=== PATIENT | male | born 1970 | race Caucasian/White ===

== ENCOUNTER 2024-03-19 01:33 | Emergency (ER) | payer MEDICAID, SELFPAY ==
--- NOTE | 2024-03-19 01:42 | PC.NURSE ---
RECEIVED REPORT FROM [facility] BUT PATIENT STATES HE DOES NOT WANT TO BE SEEN AND PICK HIM UP. PATIENT EXITED ED AT THIS TIME, PRIOR TO TRIAGE.
== END 2024-03-19 01:43 | disposition left against medical advice (07) ==
LOC: SERX 01:54
PROVIDERS: Emergency Provider Emergency Medicine
DX: Z53.21 Procedure and treatment not carried out due to patient leaving prior to being seen by health care provider (principal)